=== PATIENT | male | born 1975 | race Caucasian/White ===

== ENCOUNTER 2018-07-06 19:47 | Emergency (ER) | payer SELFPAY ==
[~2018-07-06] VITALS: Ht 170.2 cm; Wt 91.0 kg
[2018-07-07] MEDS ORDERED: LIDOCAINE HCL/PF 1% 10 MG/ML 5ML VIAL IJ ONE (04:00)
[2018-07-07] MEDS ORDERED: TETANUS, DIPHTHERIA, PERTUSSIS VAC/PF 0.5ML (>7YR OLD) IM ONE (04:00)
[2018-07-07] MEDS ORDERED: IBUPROFEN 600MG TABLET PO ONE (04:00)
[2018-07-07 05:24] VITALS: BP 146/85
== END 2018-07-07 05:26 | disposition home or self-care (01) ==
LOC: ER 19:47
DX: S61.412A Laceration without foreign body of left hand, initial encounter (principal); X58.XXXA Exposure to other specified factors, initial encounter; Y93.89 Activity, other specified; Y92.89 Other specified places as the place of occurrence of the external cause; Y99.8 Other external cause status
CPT/HCPCS: 12001; 73130; 90471; 90715; 99283; J3490; Z7610

== ENCOUNTER 2018-07-11 13:39 | Emergency (ER) | payer SELFPAY ==
[~2018-07-11] VITALS: Ht 160 cm; Wt 82.0 kg
[2018-07-11] MEDS ORDERED: BACITRACIN ZINC OINT UDPKT TOP NR (14:45)
[2018-07-11 15:36] VITALS: BP 160/99
== END 2018-07-11 15:38 | disposition home or self-care (01) ==
LOC: ER 13:39
DX: S61.412D Laceration without foreign body of left hand, subsequent encounter (principal); X58.XXXD Exposure to other specified factors, subsequent encounter
CPT/HCPCS: 99283